=== PATIENT | female | born 1970 | race Caucasian/White ===

== ENCOUNTER 2021-09-12 10:54 | Emergency (ER) | payer OTHER ==
--- NOTE | 2021-09-12 12:21 | ER ---
Nurse's Notes [facility] Name: Patrizia Walker Age: 51 yrs Sex: Female : 1970 Arrival Date: 09/12/2021 Time: 10:57 Bed 10 Private MD: Diagnosis: Acute upper respiratory infection, unspecified;Viral infection, unspecified Presentation: 09/12 12:12 Chief complaint: Patient states: TATUM, fever, body aches x 1 day. Coronavirus screen: jl Vaccine status: Patient reports being unvaccinated. Client presents with at least one sign or symptom that may indicate coronavirus-19. Standard/surgical mask placed on the client. Ebola Screen: No symptoms or risks identified at this time. Initial Sepsis Screen: Does the patient meet any 2 criteria? No. Patient's initial sepsis screen is negative. Does the patient have a suspected source of infection? No. Patient's initial sepsis screen is negative. Risk Assessment: Do you want to hurt yourself or someone else? Patient reports no desire to harm self or others. Onset of symptoms was September 11, 2021. Care prior to arrival: None. 12:12 Method Of Arrival: Ambulatory jl7 12:12 Acuity: ACE 4 jl7 Triage Assessment: 12:15 General: Appears in no apparent distress. uncomfortable, Behavior is calm, cooperative, jl7 appropriate for age. Pain: Complains of pain in tatum Pain. Neuro: Level of Consciousness is awake, alert, obeys commands, Oriented to person, place, time, situation. Cardiovascular: Patient's skin is warm and dry. Derm: Skin is pink, warm \\T\\ dry. 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 - Social history:: Smoking status: Patient denies any tobacco usage or history of. Vital Signs: 12:12 BP 111 / 87; Pulse 91; Resp 17; Temp 98.4; Pulse Ox 97% on R/A; Weight 77.11 kg; Height jl7 5 ft. 3 in. (160.02 cm); Pain 7/10; 12:12 Body Mass Index 30.11 (77.11 kg, 160.02 cm) [facility] ED Course: 10:57 Patient arrived in ED. as 12:12 Shama Mesa, RN is Primary Nurse. [facility] 12:14 Triage completed. [facility] 12:15 Arm band placed on right wrist. [facility] 12:19 Haris Cisse MD is Attending Physician. [facility] 12:20 COVID-19/FLU A+B (Document "Date of Onset" if Symptomatic) Sent. [facility] 12:20 COVID swab sent to lab. [facility] 12:27 Patient did not have IV access during this emergency room visit. [facility] Administered Medications: No medications were administered Outcome: 12:20 Discharge ordered by . [facility] 12:27 Discharged to home ambulatory. [facility] 12:27 Condition: stable 12:27 Discharge instructions given to patient, Instructed on discharge instructions, follow up and referral plans. Demonstrated understanding of instructions, follow-up care. 12:27 Patient left the ED. [facility] Addendum: 09/14/2021 14:34 Addendum: COVID-19 Result: Positive result giiven to ED physician to notify pt. e b Physician was able to contact pt and pt was notified of positive COVID-19 swab result. Physician answered pt questions. Signatures: Haris Cisse MD MD kdr Martinez, Amelia as Martinez, Maria [facility] Shama Mesa, RN RN [facility] Jocelin Bonilla
--- NOTE | 2021-09-12 12:21 | EDPHYS ---
Physician Documentation [facility] Name: Patrizia Walker Age: 51 yrs Sex: Female : 1970 Arrival Date: 09/12/2021 Time: 10:57 Bed 10 Private MD: ED Physician Haris Cisse HPI: 09/12 13:09 This 51 yrs old Female presents to ER via Ambulatory with complaints of r/o covid. kdr 13:09 The patient or guardian reports flu symptoms, arthralgias, low-grade fever, myalgias, kdr no appetite. Onset: The symptoms/episode began/occurred gradually, 1 day(s) ago. Modifying factors: The symptoms are alleviated by nothing. the symptoms are aggravated by nothing. Associated signs and symptoms: Pertinent positives: fever. Severity of symptoms: At their worst the symptoms were mild in the emergency department the symptoms are unchanged. The patient has not experienced similar symptoms in the past. The patient has not recently seen a physician. Patient reports headache, fever, body aches for 1 day. 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 - Social history:: Smoking status: Patient denies any tobacco usage or history of. ROS: 13:09 Constitutional: Patient's had a fever and chills for the last 24 hours Eyes: Negative kdr for injury, pain, redness, and discharge, Neck: Negative for injury, pain, and swelling, Cardiovascular: Negative for chest pain, palpitations, and edema, Respiratory: Negative for shortness of breath, cough, wheezing, and pleuritic chest pain, Abdomen/GI: Negative for abdominal pain, nausea, vomiting, diarrhea, and constipation, Back: Negative for injury and pain, : Negative for injury, bleeding, discharge, and swelling, MS/Extremity: Negative for injury and deformity, Skin: Negative for injury, rash, and discoloration, Neuro: Negative for headache, weakness, numbness, tingling, and seizure activity. Psych: Negative for depression, anxiety, suicide ideation, homicidal ideation, and hallucinations, Allergy/Immunology: Negative for hives, rash, and allergies, Endocrine: Negative for neck swelling, polydipsia, polyuria, polyphagia, and marked weight changes, Hematologic/Lymphatic: Negative for swollen nodes, abnormal bleeding, and unusual bruising. Exam: 13:09 Constitutional: This is a well developed, well nourished patient who is awake, alert, kdr and in no acute distress. Head/Face: Normocephalic, atraumatic. Chest/axilla: Normal chest wall appearance and motion. Nontender with no deformity. No lesions are appreciated. Cardiovascular: Regular rate and rhythm with a normal S1 and S2. No gallops, murmurs, or rubs. Normal PMI, no JVD. No pulse deficits. Respiratory: Lungs have equal breath sounds bilaterally, clear to auscultation and percussion. No rales, rhonchi or wheezes noted. No increased work of breathing, no retractions or nasal flaring. Abdomen/GI: Soft, non-tender, with normal bowel sounds. No distension or tympany. No guarding or rebound. No evidence of tenderness throughout. Vital Signs: 12:12 BP 111 / 87; Pulse 91; Resp 17; Temp 98.4; Pulse Ox 97% on R/A; Weight 77.11 kg; Height jl7 5 ft. 3 in. (160.02 cm); Pain 7/10; 12:12 Body Mass Index 30.11 (77.11 kg, 160.02 cm) jl7 MDM: 12:20 Patient medically screened. kdr 13:09 Data reviewed: vital signs, nurses notes, lab test result(s). Counseling: I had a kdr detailed discussion with the patient and/or guardian regarding: the historical points, exam findings, and any diagnostic results supporting the discharge/admit diagnosis, the need for outpatient follow up. Administered Medications: No medications were administered Disposition Summary: 09/12/21 12:20 Discharge Ordered Location: Home kdr Condition: Fair kdr Diagnosis - Acute upper respiratory infection, unspecified kdr - Viral infection, unspecified kdr Followup: kdr - With: Private Physician - When: 2 - 3 days - Reason: If symptoms return, Further diagnostic work-up, Recheck today's complaints, Continuance of care, Re-evaluation by your physician Discharge Instructions: - Discharge Summary Sheet kdr - Viral Respiratory Infection, [id number] kdr - COVID-19 kdr - COVID-19: What Your Test Results Mean - [facility] kdr - COVID-19 Frequently Asked Questions kdr - COVID-19: Quarantine vs. Isolation - [facility] kdr Forms: - Medication Reconciliation Form kdr - Thank You Letter kdr Signatures: Dispatcher [employer] Haris Roman MD MD kdr Shama Mesa RN RN jl7
[2021-09-12 12:38] VITALS: BP 111/87; TEMP 98.4; O2SAT 97
== END 2021-09-12 12:27 | disposition home or self-care (01) ==
LOC: ER 10:54
DX: J06.9 Acute upper respiratory infection, unspecified (principal); B34.9 Viral infection, unspecified
CPT/HCPCS: 0240U; 99283; 87804